=== PATIENT | male | born 1940 | race Caucasian/White ===

== ENCOUNTER 2017-10-07 08:21 | Outpatient (CLI) | payer MEDICARE, OTHER ==
[~2017-10-07] VITALS: Ht 170.2 cm; Wt 77.3 kg
--- NOTE | ~2017-10-07 | HEMODYNAMI ---
PATIENT:CANDIE FLORES JR MEDICAL RECORD: [id number] : 42 LOCATION:D.CAT ADMISSION DATE: 10/07/17 Generatedon:10/07/201710:59 Patient name: CANDIE FLORES Patient #: [id number] SSN: DO B: 1940 Date of study: 10/07/2017 Page: Of Hemodynamic Procedure Report Patient Data Patient Demographics Procedure consent was obtained First Name: CANDIE Gender: Male Last Name: SANDRA Suffix: Jr Lennon Initial: O : 1940 Patient #: [id number] Age: 77 year(s) Race: Unknown Additional ID: [id number] Contact details [address]: [address] [place] [address] lane State: [place] City: [place] Zip code: [address] Admission Admission Data Admission Date: 10/07/2017 Admission Time: 8:21 Procedure Procedure Types Cath Procedure Diagnostic Procedure LHC LHC w/Coronaries w/Grafts Miscellaneous Procedures Moderate Sedation up to 30 minutes Procedure Description Procedure Date Procedure Date: 10/07/2017 Procedure Start Time: 10:42 Procedure End Time: 10:57 Procedure Staff Name Function Marcial Bosch MD Performing Physician Norma Powers RT Monitor Leanne Ramirez RT Scrub Florentino Oro RN Nurse Itzel Reardon RN Nurse Procedure Data Cath Procedure Fluoroscopy Diagnostic fluoroscopy Total fluoroscopy Time: 4.2 time: 4.2 min min Diagnostic fluoroscopy Total fluoroscopy dose: 657 dose: 657 mGy mGy Contrast Material Contrast Material Type Amount (ml) Isovue 300 54 Entry Location Entry Primary Successful Side Size Upsize Upsize Entry Closure Succes sful Closure Location (Fr) 1 (Fr) 2 (Fr) Remarks Device Remarks Femoral Right 5 Fr Exoseal artery Estimated blood loss: 5 ml Diagnostic catheters Device Type Used For End Catheter Placement MULTIPACK Pigtail 5 Fr LV Angiography catheter MULTIPACK JL 4.0 5Fr Left Coronary catheter Angiography MULTIPACK 3DRC 5Fr Right Coronary catheter Angiography Procedure Complications No complications Procedure Medications Medication Administration Route Dosage 0.9% NaCl I.V. ml/hr Oxygen NC 2 l/min Lidocaine 2% 20 Heparin Flush Bag added to field 2 bags (1000units/500ml NS) Fentanyl I.V. 50 mcg Versed I.V. 1 mg Versed I.V. 1 mg Fentanyl I.V. 50 mcg Fentanyl I.V. 50 mcg Fentanyl I.V. 50 mcg Hemodynamics Rest Heart Rate: 56 (bpm) Pressure Samples Time Site Value (mmHg) Purpose Heart Use Rate(bpm) 10:44 LV 143/24,34 Snapshot 53 Gradients Valve Time Site Site Mean SEP/DFP Peak To Heart Use 1 2 (mmHg) (sec/min) Peak Rate (mmHg) (bpm) Aortic 10:45 LV AO 52 Snapshots Pre Cath Intra NCS Post Cath Vital Signs Time Heart Resp SPO2 etCO2 NIBP Rhythm Pain Sedation Rate (ipm) (%) (mmHg) (mmHg) Status Level (bpm) 10:07:33 61 16 96 27.9 116/59(96) NSR 0 (11) 10(A) , No pain 10:11:45 55 14 98 28.7 104/55(78) NSR 0 (11) 10(A) , No pain 10:15:53 57 14 96 30.2 99/54(81) NSR 0 (11) 10(A) , No pain 10:20:00 51 14 98 28.7 104/55(79) NSR 0 (11) 10(A) , No pain 10:24:08 56 14 99 25.6 90/56(76) NSR 0 (11) 10(A) , No pain 10:28:12 53 14 100 29.4 99/54(75) NSR 0 (11) 10(A) , No pain 10:32:20 55 14 100 19.6 96/53(73) NSR 0 (11) 10(A) , No pain 10:36:26 53 14 100 28.7 91/49(73) NSR 0 (11) 10(A) , No pain 10:40:29 54 14 100 91/51(75) NSR 0 (11) 9(A) , No pain 10:44:33 52 19 100 0 94/51(70) NSR 0 (11) 9(A) , No pain 10:48:35 53 15 96 24.9 101/58(83) NSR 0 (11) 9(A) , No pain 10:52:42 57 18 96 30.2 96/54(84) NSR 0 (11) 10(A) , No pain 10:56:44 58 9 100 3 102/59(81) NSR 0 (11) 10(A) , No pain Medications Time Medication Route Dose Verified Delivered Reason Notes Effe ctiveness by by 10:02:48 0.9% NaCl I.V. ml/hr Marcial Robbins used for Danitza Reardon RN procedure 10:05:04 Oxygen NC 2 Marcial Robbins Per l/min Danitza Reardon RN physician 10:05:14 Lidocaine 2% 20ml Marcial Ceja for local vial Danitza Bosch MD anesthetic 10:05:22 Heparin Flush added 2 Marcial Sainirey used for Bag to bags Danitza Bosch MD procedure (1000units/500ml field NS) 10:35:47 Fentanyl I.V. 50 Marcial Robbins for neisha Reardon RN sedation 10:35:55 Versed I.V. 1 mg Marcial Robbins for Danitza Reardon RN sedation 10:41:08 Versed I.V. 1 mg Marcial Robbins for Danitza Reardon RN sedation 10:41:14 Fentanyl I.V. 50 Marcial Deckerfany for neisha Reardon RN sedation 10:43:20 Fentanyl I.V. 50 Marcial Deckerfany for neisha Reardon RN sedation 10:46:11 Fentanyl I.V. 50 Marcial Deckerfany for neisha Reardon RN sedation Procedure Log Time Note 10:02:15 Florentino Oro RN sent for patient. Start room use. 10:02:16 Time tracking: Regular hours 10:02:20 Plan of Care:Hemodynamics will remain stable., Cardiac rhythm will remain stable., Comfort level will be maintained., Respiratory function will remain adequate., Patient/ family verbilizes understanding of procedure., Procedure tolerated without complication., Recovers from procedure without complications.. 10:02:48 0.9% NaCl ml/hr I.V. was administered by Itzel Reardon RN; used for procedure; 10:03:05 Patient received from Pre/Post Procedure Room to [facility] 2 Alert and oriented. Tansferred to table in Supine position. 10:03:06 Warm blankets applied, and tom hugger turned on for patient comfort. 10:03:06 Correct patient and procedure confirmed by team. 10:03:07 Signed procedure consent form obtained from patient. 10:03:08 ECG and BP/O2 sat monitors applied to patient. 10:05:04 Oxygen 2 l/min NC was administered by Itzel Reardon RN; Per physician; 10:05:14 Lidocaine 2% 20ml vial was administered by Marcial Bosch MD; for local anesthetic; 10:05:22 Heparin Flush Bag (1000units/500ml NS) 2 bags added to field was administered by Marcial Bosch MD; used for procedure; 10:06:18 Vital chart was started 10:09:27 Baseline sample Acquired. 10:09:30 Full Disclosure recording started 10:09:44 H&P Date Dictated: 10/02/2017 Within 30 days and on chart., H&P Addendum completed by physician on day of procedure. (MUST COMPLETE FOR ALL OUTPATIENTS). 10:09:46 Pre-procedure instructions explained to patient. 10:09:46 Pre-op teaching completed and patient verbalized understanding. 10:09:47 Family in waiting room. 10:09:48 Patient NPO since Midnight. 10:09:53 Is the patient allergic to Iodine/contrast media? No. 10:09:54 Was the patient premedicated? No 10:09:55 Is patient on blood thinner?No 10:09:59 Patient diabetic? No. 10:10:01 Previous problem with sedation/anesthesia? No ? 10:10:03 Snore? Yes 10:10:05 Sleep apnea? Yes 10:10:05 Deviated septum? No 10:10:06 Opens mouth fully? Yes 10:10:07 Sticks out tongue? Yes 10:10:10 Airway obstruction? No ? 10:10:13 Dentures? No ? 10:10:17 Pre procedure: right dorsailis pedis pulse 1+ Palpable, but thready & weak; easily obliterated 10:10:19 Pre procedure: left dorsailis pedis pulse 1+ Palpable, but thready & weak; easily obliterated 10:10:20 Patient pain scale 0/10 ?. 10:10:31 IV patent on arrival in left forearm with 0.9% NaCl at [facility]. 10:10:39 Lab results completed and on chart. 10:10:43 Right groin area was prepped with chlora-prep and draped in sterile fashion 10:10:44 Alarms reviewed by R. N. 10:10:44 Sharps counted by scrub and verified by R.N. 10:10:51 Physician arrived 10:10:53 Right groin site verified by team. 10:11:00 Sedation plan: IV Moderate Sedation Medication:Versed, Fentanyl 10:11:04 Use device set Femoral Dx 10:11:05 ACIST Syringe (55224) opened to sterile field. 10:11:06 Bag Decanter (2002S) opened to sterile field. 10:11:06 Medline Cath Pack ([id number]) opened to sterile field. 10:11:07 SHEATH 5FR [place] (IHR092) opened to sterile field. 10:11:07 DIAGNOSTIC WIRE .035 260cm J wire (855593) opened to sterile field. 10:11:08 ACIST Hand Control (09854) opened to sterile field. 10:11:09 ACIST Manifold (53565) opened to sterile field. 10:11:09 DIAGNOSTIC Multipack 5Fr catheter set (SF1579) opened to sterile field. 10:11:10 Tegaderm 4 x 4 (1626W) opened to sterile field. 10:18:17 Zero performed for pressure channel P1 10:35:29 --------ALL STOP TIME OUT------ 10:35:45 Final Timeout: patient, procedure, and site verified with staff and physician. All members of the team are in agreement. 10:35:47 Fentanyl 50 mcg I.V. was administered by Itzel Reardon RN; for sedation; 10:35:55 Versed 1 mg I.V. was administered by Itzel Reardon RN; for sedation; 10:36:09 Physical assessment completed. ASA score P 2 - A patient with mild systemic disease as per Marcial Bosch MD. 10:41:08 Versed 1 mg I.V. was administered by Itzel Reardon RN; for sedation; 10:41:14 Fentanyl 50 mcg I.V. was administered by Itzel Reardon RN; for sedation; 10:42:27 Procedure started. 10:42:37 Local anesthetic to right femoral artery with Lidocaine 2% by Marcial Bosch MD.INITIAL ACCESS ONLY 10:42:57 A 5 Fr sheath was inserted into the Right Femoral artery 10:43:20 Fentanyl 50 mcg I.V. was administered by Itzel Reardon RN; for sedation; 10:43:22 A MULTIPACK Pigtail 5 Fr catheter was advanced over the wire and used for LV Angiography. 10:45:01 LV hemodynamics recorded. 10:45:02 LV gram done using KOWALSKI 10:45:05 Injector settings: Ml/sec: 5, Volume: 15, 10:45:37 EF : 25 % 10:45:39 Catheter removed. 10:45:44 A MULTIPACK JL 4.0 5Fr catheter was advanced over the wire and used for Left Coronary Angiography. 10:46:11 Fentanyl 50 mcg I.V. was administered by Itzel Reardon RN; for sedation; 10:46:46 LCA angiography performed. 10:46:50 Injector settings: Ml/sec: 3, Volume: 6, 10:47:44 Catheter removed. 10:47:50 A MULTIPACK 3DRC 5Fr catheter was advanced over the wire and used for Right Coronary Angiography. 10:49:28 SCOTT to LAD angiography performed. 10:50:23 RCA angiography performed. 10:50:26 Injector settings: Ml/sec: 3, Volume: 6, 10:52:02 SVG to RCA angiography performed. 10:52:53 Catheter removed. 10:52:56 EXOSEAL 5Fr (EX500) opened to sterile field. 10:53:21 Sheath removed intact; hemostasis achieved with Exoseal to the Right Femoral artery. 10:53:27 Procedure ended.(Physican Out) 10:54:43 Fluoroscopy time 04.20 minutes. 10:54:50 Fluoroscopy dose: 657 mGy 10:54:50 Flurop Dose total: 657 10:55:23 Contrast amount:Isovue 300 54ml. 10:55:25 Sharps counted by scrub and verified by R.N. 10:55:39 Insertion/operative site no bleeding no hematoma. 10:55:43 Post-op/insertion site Right Femoral artery dressed using a 4 x 4 and Tegaderm. 10:55:46 Post right femoral artery:stable 10:55:47 Post Procedure Pulses reassessed and unchanged 10:55:50 Post procedure rhythm: unchanged. 10:55:53 Estimated blood loss: 5 ml 10:55:55 Post procedure instruction explained to patient.Patient verbalizes understanding. 10:55:55 Patient needs reinforcement of post procedure teaching. 10:56:24 Procedure type changed to Cath procedure, Diagnostic procedure, LHC, LHC w/Coronaries w/Grafts, Miscellaneous Procedures, Moderate Sedation up to 30 minutes 10:56:25 Procedure and supply charges have been captured, reviewed, submitted and are correct. 10:56:33 Procedure Complication : No complications 10:56:36 Vital chart was stopped 10:56:36 See physician's report for complete and final results. 10:57:27 Report given to Pre/Post Procedure Room. 10:57:31 Patient transfered to Pre/Post Procedure Room with Stretcher. 10:57:35 Procedure ended. 10:57:35 Full Disclosure recording stopped 10:57:41 End room use (Document Last) Device Usage Item Name Manufacture Quantity Catalog Hospital Part Current Minimal L ot# / Number Charge Number Stock Stock Serial# Code ACIST Acist 1 20542 [id number] 560605 181637 20 Syringe Medical (71473) Systems Inc Bag Microtek 1 2001S 502858 19196 431551 5 Decanter Medical Inc. () Medline Cardinal 1 [id number] 574324 81411 777361 5 Cath Pack Health ([id number]) SHEATH 5FR Terumo 1 YKH845 076804 872729 779959 40 [place] (MEZ561) DIAGNOSTIC [place] 1 539194 650103 955106 900178 30 WIRE .035 260cm J wire (319785) ACIST Hand Acist 1 19844 234668 458080 024244 5 Control Medical (03885) Systems Inc ACIST Acist 1 63722 803699 588315 456943 5 Manifold Medical (40168) Systems Inc DIAGNOSTIC Cardinal 1 AH2221 065952 29505 436911 30 Multipack Health 5Fr catheter set (UJ7784) Tegaderm 4 3M 1 1626W 558687 531925 732976 5 x 4 (1626W) MULTIPACK Cardinal 1 248589 5 Pigtail 5 Health Fr catheter MULTIPACK Cardinal 1 188952 5 JL 4.0 5Fr Health catheter MULTIPACK Cardinal 1 286566 5 3DRC 5Fr Health catheter EXOSEAL 5Fr Cardinal 1 EX500 815161 663898 502553 10 (EX500) Health Signature Audit [place] Stage Time Signature Unsigned Intra-Procedure 10/07/2017 Norma Powers 10:58:51 AM RT(R) Signatures Monitor : Norma Powers RT Signature : Date : Time : [id number] [place] [address]
[2017-10-07] MEDS ORDERED: XALATAN 0.0052.5 ML EACH EYE (08:42)
[2017-10-07] MEDS ORDERED: VASOTEC20 MG PO (08:43)
[2017-10-07] MEDS ORDERED: CARAFATE1 G PO (08:43)
[2017-10-07] MEDS ORDERED: ZOCOR40 MG PO (08:43)
[2017-10-07] MEDS ORDERED: METOPROLOL TART50 MG PO (08:44)
[2017-10-07] MEDS ORDERED: NORVASC10 MG PO (08:44)
[2017-10-07] MEDS ORDERED: K-DUR20 MEQ PO (08:47)
[2017-10-07] MEDS ORDERED: HYDROCHLOROTHIA50 MG PO (08:47)
[2017-10-07] MEDS ORDERED: ISOSORBIDE MONO30 M1 PO (08:48)
[2017-10-07] MEDS ORDERED: ZYLOPRIM300 MG PO (08:48)
[2017-10-07] MEDS ORDERED: BAYER CHEWABLE81 MG PO (08:49)
[2017-10-07] MEDS ORDERED: NIACIN100 MG PO (08:49)
[2017-10-07] MEDS ORDERED: FERROUS SULFAT140 MG PO (08:49)
[2017-10-07 08:52] VITALS: BP 119/54; Ht 170.2 cm; Wt 77.3 kg
[2017-10-07 10:04] LABS: BASOPHILS 0.4 % (0-2); EOSINOPHILS 1.6 % (0-7); HEMATOCRIT 33.6 % (42.0-54.0); HEMOGLOBIN 11.4 g/dL (13.5-17.5); IMMATURE GRANULOCYTES 0.2 % (0-5); LYMPHOCYTES 21.3 % (15-50); MCH 38.3 pg (26.0-34.0); MCHC 33.9 g/dL (31.0-37.0); MCV 112.8 fL (80.0-100.0); MEAN PLATELET VOLUME 10.7 fL (7.4-10.4); MONOCYTES 8.5 % (2-11); PLATELET COUNT 117 10x3/uL (130-400); RBC 2.98 10x6/uL (4.20-6.10); RDW 14.1 % (11.5-14.5); WBC 5.5 10x3/uL (4.8-10.8)
[2017-10-07 10:19] LABS: ANION GAP 13.7 mmol/L (8-16); CARBON DIOXIDE 22.1 mmol/L (21.0-32.0); CREATININE - SERUM 1.3 mg/dL (0.6-1.3); POTASSIUM - SERUM 3.8 mmol/L (3.5-5.1)
--- NOTE | 2017-10-07 11:25 | NUR ---
2L NC, NO RESP DISTRESS. RIGHT GROIN 5F EXOSEAL CDI, NO BLEEDING OR HEMATOMA NOTED. NO C/O PAIN OR NAUSEA. VSS. FAMILY AT BEDSIDE, CALL LIGHT WITHIN REACH.
--- NOTE | 2017-10-07 11:55 | NUR ---
RIGHT GROIN 5F EXOSEAL CDI, NO BLEEDING OR HEMATOMA NOTED. 2L NC, NO RESP DISTRESS. NO C/O PAIN OR NAUSEA. VSS. AT BEDSIDE. WILL CONTINUE TO MONITOR.
--- NOTE | 2017-10-07 12:17 | OP ---
PATIENT NAME: CANDIE FLORES JR MEDICAL RECORD: [id number] :42 LOCATION:D.CAT ADMISSION DATE: SURGEON: DALE KENNY MD DATE OF OPERATION: 10/07/2017 PROCEDURES: 1. Left heart catheterization. 2. Selective coronary angiography. 3. Left ventriculogram. 4. SCOTT angiography. 5. Vein graft angiography. INDICATION: Cardiomyopathy, shortness of breath, coronary artery disease. PROCEDURE IN DETAIL: After informed consent was obtained and after detailed explanation of risks, benefits as well as alternative therapies, the patient elected to proceed with angiogram and heart catheterization. The right femoral area was prepped and draped in normal sterile fashion. The right femoral artery was cannulated via modified Seldinger technique with placement of 6-[place] sheath. All catheters exchanged through this sheath. FINDINGS: The left ventriculogram was performed in standard 30-degree KOWALSKI view, reveals markedly depressed ejection fraction at 25%. The aortic valve was severely calcified; however, there was only 25-mm gradient across the aortic valve. SELECTIVE CORONARY ANGIOGRAPHY: 1. Left main is with 70% stenosis. 2. The left anterior descending is totally occluded. 3. SCOTT to the LAD is widely patent. Distal LAD is widely patent. 4. Left circumflex is heavily calcified totally occluded mid vessel. Vein graft to the distal circumflex is widely patent. 5. The right coronary artery is small, nondominant, diffusely diseased. OVERALL IMPRESSION: Wide patency of both his previous bypass grafts, moderate to severe aortic stenosis, severe cardiomyopathy, no role for transcatheter revascularization at this time. TRANSINT:[id number] Voice Confirmation ID: [id number] DOCUMENT ID: [id number] DALE KENNY MD at 1217 CC: [id number] DICTATION DATE: 10/07/17 1058 MANAGER CALL CENTER: 10/07/17 1132 [facility] [address] [place] [address]
--- NOTE | 2017-10-07 12:29 | NUR ---
HOB ELEVATED 30 DEGREES. RIGHT GROIN 5F EXOSEAL CDI, NO BLEEDING OR HEMATOMA NOTED.
--- NOTE | 2017-10-07 12:45 | NUR ---
LEFT FA PIV D/C'D WITH CATHETER INTACT, BAND AID TO SITE. UP TO BEDSIDE TO GET DRESSED.
--- NOTE | 2017-10-07 12:50 | NUR ---
DISCHARGE INSTRUCTIONS GIVEN, VERBALIZED UNDERSTANDING.
--- NOTE | 2017-10-07 13:00 | NUR ---
AMBULATED TO RESTROOM TO VOID. TAKEN OUT VIA WHEELCHAIR BY CATH MAMMOGRAPHY TECHNICIAN. LEFT FACILITY WITH FAMILY AND ALL PERSONAL BELONGINGS.
== END 2017-10-07 13:00 | disposition home or self-care (01) ==
LOC: D.CATH 08:21
PROVIDERS: Internal Medicine Interventional Cardiology
DX: I25.10 Atherosclerotic heart disease of native coronary artery without angina pectoris (principal); I42.0 Dilated cardiomyopathy; I08.0 Rheumatic disorders of both mitral and aortic valves; I10 Essential (primary) hypertension; E78.5 Hyperlipidemia, unspecified; Z01.812 Encounter for preprocedural laboratory examination

== ENCOUNTER 2019-04-18 11:31 | Inpatient (IN) | payer MEDICARE, OTHER ==
[2019-04-18] VITALS (8 sets, daily range): BP systolic 84–116; BP diastolic 40–66; BMI 27.4
[~2019-04-18 11:31] MED LIST: BAYER CHEWABLE81 MG PO; CARAFATE1 G PO; FERROUS SULFAT140 MG PO; HYDROCHLOROTHIA50 MG PO; ISOSORBIDE MONO30 M1 PO; K-DUR20 MEQ PO; METOPROLOL TART50 MG PO; NIACIN100 MG PO; NORVASC10 MG PO; VASOTEC20 MG PO; XALATAN 0.0052.5 ML EACH EYE; ZOCOR40 MG PO; ZYLOPRIM300 MG PO
[2019-04-18 11:56] LABS: BASOPHILS 0.5 % (0-2); EOSINOPHILS 3.3 % (0-7); HEMATOCRIT 31.9 % (42.0-54.0); HEMOGLOBIN 10.6 g/dL (13.5-17.5); IMMATURE GRANULOCYTES 0.2 % (0-5); LYMPHOCYTES 20.2 % (15-50); MCH 33.4 pg (26.0-34.0); MCHC 33.2 g/dL (31.0-37.0); MCV 100.6 fL (80.0-100.0); MEAN PLATELET VOLUME 10.3 fL (7.4-10.4); NEUTROPHILS 65.8 % (40-80); PLATELET COUNT 106 10x3/uL (130-400); RBC 3.17 10x6/uL (4.20-6.10); RDW 14.1 % (11.5-14.5)
[2019-04-18 12:06] LABS: ALBUMIN 3.5 g/dL (3.4-5.0); ALKALINE PHOSPHATASE 72 U/L (46-116); ALT (SGPT) 18 U/L (10-68); BILIRUBIN - TOTAL 0.72 mg/dL (0.2-1.3); CALC OSMOLALITY 284 mosm/kg (275-300); CALCIUM 8.7 mg/dL (8.5-10.1); CARBON DIOXIDE 24.3 mmol/L (21.0-32.0); CHLORIDE - SERUM 107 mmol/L (98-107); CREATININE - SERUM 1.8 mg/dL (0.6-1.3); GLUCOSE 108 mg/dL (74-106); POTASSIUM - SERUM 4.1 mmol/L (3.5-5.1); PROTEIN - SERUM 6.1 g/dL (6.4-8.2); SODIUM 141 mmol/L (136-145); UREA NITROGEN 22 mg/dL (7-18); eGFR NON AFRICAN AMERICAN 39 mL/min (90-120)
[2019-04-18 12:22] LABS: CKMB 2.1 U/L (0.0-3.6); CREATINE KINASE 79 UL (21-232); MAGNESIUM - SERUM 1.3 mg/dL (1.8-2.4); PRO BNP 716 pg/mL (0-450)
[2019-04-18 12:25] LABS: TROPONIN-I 0.061 ng/mL (0.000-0.060)
--- NOTE | 2019-04-18 12:40 | NUR ---
ATTEMPTED TO CALL REPORT. NURSE NOT AVAILABLE AT THIS TIME.
--- NOTE | 2019-04-18 12:45 | NUR ---
PT SITTING UP IN BED TALKING WITH FAMILY AT BEDSIDE.
--- NOTE | 2019-04-18 13:51 | NUR ---
ARRIVE TO ROOM VIA STRETCHER FROM ER. ALERT AND ORIENTED X4. ACCOMPANIED BY FAMILY AND STAFF. AMBULATES TO BED FROM STRETCHER. GAIT STEADY. IV INFUSING MAGNESIUM 1G ORDERED THROUGH LT AC. REFUSE SCDs. DENIES ANY NEEDS AT THIS TIME. CONTINUE PLAN OF CARE AND SAFETY PRECAUTIONS. CONTINUE ADMISSION PROCESS.
[2019-04-18] MEDS ORDERED: FOLIC ACID1 MG PO (14:00)
[2019-04-18 15:41] LABS: APPEARANCE CLEAR (CLEAR); BILIRUBIN NEGATIVE (NEGATIVE); COLOR YELLOW (YELLOW); GLUCOSE NEGATIVE (NEGATIVE); KETONE NEGATIVE (NEGATIVE); NITRITE NEGATIVE (NEGATIVE); PROTEIN NEGATIVE (NEGATIVE); SPECIFIC GRAVITY 1.015 (1.005-1.020); UROBILINOGEN NORMAL (NORMAL)
--- NOTE | 2019-04-18 18:00 | NUR ---
ALERT AND ORIENTED X4. EKG COMPLETE ON CHART. ORTHOSTATIC BP COMPLETE. LAYING BP-111/51, HR-60. SITTING BP-114/58, HR-60. STANDING BP-106/57, HR-64. TAKEN TO ULTRASOUND VIA BED. CONTINUE PLAN OF CARE AND SAFETY PRECAUTIONS.
[2019-04-18 18:04] LABS: % SATURATION 34 % (15-55); IRON 77 ug/dl (35-150); TOTAL IRON BIND CAPACITY 223 ug/dl (260-445); UNSAT IRON BIND CAPACITY 146 ug/dl (150-375)
[2019-04-18 18:16] LABS: T4 THYROXIN - FREE 0.78 ng/dL (0.76-1.46); THYROID STIMULATING HORMONE 1.27 uIU/mL (0.36-3.74)
[2019-04-18 18:21] LABS: CREATINE KINASE 79 UL (21-232)
[2019-04-18 18:23] LABS: TROPONIN-I 0.079 ng/mL (0.000-0.060)
--- NOTE | 2019-04-18 20:01 | NUR ---
RECIEVED UP IN BED WITH EYEOPEN AND TV ON. ALERT AND OROIENTED X4. O2@ 2LITERS PER N/C IN PLACE. IV TO LEFT AC SL.. VERY [place] AND SPOUSE AT BEDSIDE. DENIES ANY NEEDS AT THIS TIME.
[2019-04-18 23:50] LABS: CKMB 1.8 U/L (0.0-3.6); CREATINE KINASE 70 UL (21-232)
[2019-04-18 23:52] LABS: TROPONIN-I 0.209 ng/mL (0.000-0.060)
[2019-04-19 00:11] VITALS: BP 110/58
[2019-04-19 04:00] VITALS: BP 109/61
[2019-04-19 06:26] LABS: BASOPHILS 0.8 % (0-2); HEMATOCRIT 29.8 % (42.0-54.0); HEMOGLOBIN 9.9 g/dL (13.5-17.5); IMMATURE GRANULOCYTES 0.2 % (0-5); LYMPHOCYTES 26.6 % (15-50); MCH 33.3 pg (26.0-34.0); MCHC 33.2 g/dL (31.0-37.0); MCV 100.3 fL (80.0-100.0); MEAN PLATELET VOLUME 10.2 fL (7.4-10.4); MONOCYTES 11.5 % (2-11); NEUTROPHILS 56.9 % (40-80); PLATELET COUNT 103 10x3/uL (130-400); RBC 2.97 10x6/uL (4.20-6.10); RDW 14.2 % (11.5-14.5)
[2019-04-19 07:03] LABS: ALBUMIN 3.1 g/dL (3.4-5.0); ALKALINE PHOSPHATASE 61 U/L (46-116); ALT (SGPT) 17 U/L (10-68); BILIRUBIN - TOTAL 0.62 mg/dL (0.2-1.3); CALC OSMOLALITY 286 mosm/kg (275-300); CALCIUM 8.8 mg/dL (8.5-10.1); CARBON DIOXIDE 24.1 mmol/L (21.0-32.0); CHLORIDE - SERUM 110 mmol/L (98-107); CREATINE KINASE 65 UL (21-232); GLUCOSE 87 mg/dL (74-106); POTASSIUM - SERUM 4.3 mmol/L (3.5-5.1); PROTEIN - SERUM 5.5 g/dL (6.4-8.2); SODIUM 143 mmol/L (136-145); UREA NITROGEN 21 mg/dL (7-18)
[2019-04-19 07:08] LABS: CREATININE - SERUM 1.3 mg/dL (0.6-1.3); MAGNESIUM - SERUM 1.9 mg/dL (1.8-2.4); TROPONIN-I 0.245 ng/mL (0.000-0.060); eGFR NON AFRICAN AMERICAN 57 mL/min (90-120)
--- NOTE | 2019-04-19 07:10 | NUR ---
REPORT RECEIVED FROM [employer] AND PATIENT CARE ASSUMED. PATIENT LAYING IN BED ON BACK AWAKE, ALERT AND ORIENTED X 4. LT AC IV INFILLTRATED . IV DC/D WITHOUT DIFFICULTY AND CATHETER INTACT. WILL RE-SITE IV AT Sxbbm. PATIENT DENIES ANY PAIN OR NEEDS . WILL CONTINUE WITH PLAN OF CARE. SR UP X 2 BED IN LOW POSITION AND CALL LIGHT IN REACH.
[2019-04-19 09:01] VITALS: BP 130/79
--- NOTE | 2019-04-19 11:29 | NUR ---
PATIENT RESTING QUIETLY IN BED WITH AT BS. PATIENT DENIES ANY NEEDS OR PAIN. PATEINT IS STABLE AND VSS. ASSESSMENT COMPLETED. WILL CONTINUE TO MONITOR. SR UP X 2 BED IN LOW POSTION AND CALL LIGHT IN REACH.
[2019-04-19 13:49] VITALS: BMI 27.4
--- NOTE | 2019-04-19 15:43 | NUR ---
PATIENT SITTING UP IN BED WATCHING TV. PATIENT IS STABLE AND VSS. PATIENT DENIES ANY NEEDS OR PAIN. WILL CONTINUE TO MONITOR. SR UP X 2 BED IN LOW POSITION AND CALL LIGHT IN REACH.
[2019-04-19 18:48] VITALS: BP 107/63
--- NOTE | 2019-04-19 19:33 | NUR ---
RECIEVED LAYING IN BED WITH EYES OPEN AND TV ON. ALERT AND ORIENTED X4. UP AD GIOVANNA TO B/R. REPORTS LOWER [place]. HOWEVER PT ABLE TO HEAR THIS NURSE WITHOUT DIFFICULTY. IV TO RT WRIST SL.. TELEMETRY IN PLACE. DENIES ANY NEEDDS AT THIS TIME.
[2019-04-20] VITALS: BP 118/64
[2019-04-20 04:00] VITALS: BP 115/60
[2019-04-20 05:50] LABS: BASOPHILS 0.4 % (0-2); EOSINOPHILS 5.9 % (0-7); HEMOGLOBIN 10.2 g/dL (13.5-17.5); IMMATURE GRANULOCYTES 0.2 % (0-5); LYMPHOCYTES 24.4 % (15-50); MCH 32.7 pg (26.0-34.0); MCHC 32.9 g/dL (31.0-37.0); MCV 99.4 fL (80.0-100.0); MEAN PLATELET VOLUME 10.6 fL (7.4-10.4); MONOCYTES 11.2 % (2-11); NEUTROPHILS 57.9 % (40-80); PLATELET COUNT 105 10x3/uL (130-400); RBC 3.12 10x6/uL (4.20-6.10); RDW 13.9 % (11.5-14.5); WBC 5.3 10x3/uL (4.8-10.8)
[2019-04-20 06:03] LABS: ALBUMIN 3.1 g/dL (3.4-5.0); ANION GAP 11.2 mmol/L (8-16); BILIRUBIN - TOTAL 0.63 mg/dL (0.2-1.3); CALCIUM 8.9 mg/dL (8.5-10.1); CREATININE - SERUM 1.4 mg/dL (0.6-1.3); POTASSIUM - SERUM 4.2 mmol/L (3.5-5.1); PROTEIN - SERUM 5.8 g/dL (6.4-8.2)
[2019-04-20 06:07] LABS: MAGNESIUM - SERUM 1.4 mg/dL (1.8-2.4)
--- NOTE | 2019-04-20 07:00 | NUR ---
RECEIVED REPORT. ASSUMED CARE OF PATIENT. CALL LIGHT WITHIN REACH. PATIENT STATES HE FEELS FINE THIS MORNING AND IS GOING TO THROW A FIT IF HE DOESN'T GET TO GO HOME TODAY. PATIENT STATES IT ISN'T THIS WRITERS FAULT, HE IS JUST TIRED OF BEING HERE AND READY TO GO HOME. RESP EVEN AND UNLABORED. PATIENT DENIES CHEST PAIN, DIZZINESS OR SOB.
[2019-04-20 08:13] LABS: FOLATE (FOLIC ACID) - SERUM >20.0 ng/mL (>3.0)
[2019-04-20 08:37] VITALS: BP 124/84
--- NOTE | 2019-04-20 11:43 | NUR ---
PATIENT ENCOURAGED TO GET OOB AND WALK WITH THIS NURSE. ODESSA REFUSED. PATIENT OFFERED SHOWER AT THIS TIME. PATIENT REFUSED SHOWER.
[2019-04-20 14:16] VITALS: BMI 27.4
--- NOTE | 2019-04-20 15:38 | NUR ---
FROM [facility], PERSONAL FRIEND OF PATIENTS, HERE TO VISIT AT THIS TIME. PATIENT GLAD TO SEE HIM. CALL LIGHT WITHIN REACH. NO DISTRESS.
--- NOTE | 2019-04-20 16:51 | NUR ---
RESTING IN BED. NO DISTRESS. CALL LIGHT WITHIN REACH.
[2019-04-20 18:31] VITALS: BP 120/70
[2019-04-20 18:36] VITALS: BP 131/67
--- NOTE | 2019-04-20 18:36 | NUR ---
SPOKE WITH , IMPRESSION OF CTA READ TO HIM AND HE STATED PATIENT CAN GO HOME BUT TO CALL HIS OFFICE [phone] IN THE MORNING AND GET AN APPT TO BE SEEN IN THE OFFICE THIS WEEK. HE STATED IT IS OKAY WITH HIM IF [facility] WANTS TO SEND HIM HOME.
--- NOTE | 2019-04-20 18:45 | NUR ---
LAVONNE ADAME FOR [facility] NOTIFIED THAT STATES HE CAN GO HOME BUT NEEDS TO CALL THE OFFICE IN THE MORNING AND BE SEEN BY THIS WEEK. WENDI WILL PUT D/C ORDERS IN. THANKED HIM.
[2019-04-20] MEDS ORDERED: HYDROCHLOROTHIA50 MG PO (20:13)
[2019-04-20] MEDS ORDERED: HYDROCHLOROTHIA25 MG PO (20:16)
--- NOTE | 2019-04-20 21:17 | NUR ---
REMOVED PATIENT'S RIGHT WRIST PIV. REVIEWED PT'S DISCAHRGE PAPERWORK WITH PT AND HIS . THEY BOTH STATED THEY UNDERSTOOD AND PATIENT SIGNED PAPERWORK. ASSISTED PT TO FRONT DOOR VIA WHEELCHAIR.
== END 2019-04-20 21:18 | disposition home or self-care (01) | DRG 312 ==
LOC: D.ER 11:31 → D.M2 12:19 → OBSVTIME 12:19 → D.M2 04-19 15:56
PROVIDERS: Emergency Medicine; Family Medicine; ADMIT Internal Medicine Nephrology; ATTEND Internal Medicine Nephrology
DX: R55 Syncope and collapse (principal); D53.9 Nutritional anemia, unspecified; I12.9 Hypertensive chronic kidney disease with stage 1 through stage 4 chronic kidney disease, or unspecified chronic kidney disease; N18.3 Chronic kidney disease, stage 3 (moderate); M19.90 Unspecified osteoarthritis, unspecified site; M54.5 Low back pain; G47.33 Obstructive sleep apnea (adult) (pediatric); I25.10 Atherosclerotic heart disease of native coronary artery without angina pectoris; Z95.1 Presence of aortocoronary bypass graft; R00.1 Bradycardia, unspecified; T50.905A Adverse effect of unspecified drugs, medicaments and biological substances, initial encounter

== ENCOUNTER → 2019-06-30 13:02 | Outpatient (CLI) | payer MEDICARE, OTHER ==
[~2019-06-30 13:02] MED LIST changes: +FOLIC ACID1 MG PO; +HYDROCHLOROTHIA25 MG PO
== END | disposition home or self-care (01) ==
LOC: D.US 13:02
PROVIDERS: ATTEND Internal Medicine Cardiovascular Disease
DX: I65.23 Occlusion and stenosis of bilateral carotid arteries (principal)

== ENCOUNTER → 2019-12-30 08:33 | Outpatient (CLI) | payer MEDICARE, OTHER | END | disposition home or self-care (01) | LOC: D.US 08:33 | PROVIDERS: ATTEND Internal Medicine Cardiovascular Disease | DX: I65.23 Occlusion and stenosis of bilateral carotid arteries (principal) ==

== ENCOUNTER 2020-06-27 17:07 | Emergency (ER) | payer MEDICARE, OTHER ==
[~2020-06-27] VITALS: Ht 170.2 cm; Wt 77.3 kg
[2020-06-27 17:13] VITALS: Ht 170.2 cm; Wt 77.3 kg
[2020-06-27 18:28] LABS: BASOPHILS 0.1 % (0-2); EOSINOPHILS 0.7 % (0-7); HEMATOCRIT 39.1 % (42.0-54.0); HEMOGLOBIN 12.9 g/dL (13.5-17.5); IMMATURE GRANULOCYTES 0.1 % (0-5); LYMPHOCYTES 2.7 % (15-50); MCH 33.2 pg (26.0-34.0); MCV 100.8 fL (80.0-100.0); MEAN PLATELET VOLUME 9.7 fL (7.4-10.4); MONOCYTES 2.3 % (2-11); NEUTROPHILS 94.1 % (40-80); PLATELET COUNT 100 10x3/uL (130-400); RBC 3.88 10x6/uL (4.20-6.10); RDW 14.2 % (11.5-14.5); WBC 8.3 10x3/uL (4.8-10.8)
[2020-06-27 18:34] LABS: BILIRUBIN NEGATIVE (NEGATIVE); KETONE NEGATIVE (NEGATIVE); NITRITE NEGATIVE (NEGATIVE); UROBILINOGEN NORMAL (NORMAL)
[2020-06-27 18:40] LABS: CARBON DIOXIDE 24.9 mmol/L (21.0-32.0); CREATININE - SERUM 1.4 mg/dL (0.6-1.3); POTASSIUM - SERUM 3.9 mmol/L (3.5-5.1)
[2020-06-27 19:23] LABS: ALBUMIN 3.4 g/dL (3.4-5.0); BILIRUBIN - TOTAL 1.32 mg/dL (0.2-1.3); CKMB 0.5 U/L (0.0-3.6)
[2020-06-27 19:32] VITALS: BP 134/76
[2020-06-27 19:32] LABS: TROPONIN-I 0.081 ng/mL (0.000-0.060)
[2020-06-27 20:28] LABS: PROTEIN - SERUM 7.5 g/dL (6.4-8.2)
== END 2020-06-27 19:33 | disposition home or self-care (01) ==
LOC: D.ER 17:07
PROVIDERS: Family Medicine
DX: R11.2 Nausea with vomiting, unspecified (principal); I25.10 Atherosclerotic heart disease of native coronary artery without angina pectoris; I10 Essential (primary) hypertension; Z95.1 Presence of aortocoronary bypass graft; R10.9 Unspecified abdominal pain

== ENCOUNTER → 2021-03-09 09:33 | Outpatient (CLI) | payer MEDICARE, OTHER ==
[2020-09-12 08:43] VITALS: BMI 26.7
[~2021-03-09 09:33] MED LIST changes: +CYANOCOBAL1000 MCG/4 IM; +FERROUS SULFAT325 MG PO; +FLOMAX0.4 MG PO; +NITROSTAT0.3 MG SL
== END | disposition home or self-care (01) ==
LOC: D.US 09:33
PROVIDERS: ATTEND Internal Medicine Cardiovascular Disease
DX: I65.23 Occlusion and stenosis of bilateral carotid arteries (principal)